=== PATIENT | female | born 1980 | race Caucasian/White ===

== ENCOUNTER 2021-01-01 13:20 | Emergency (ER) | payer MEDICARE, MEDICAID, SELFPAY ==
[2021-01-01 13:25] VITALS: BP 113/56; PULSE 63; RESP 14; TEMP 36.7; O2SAT 98
--- NOTE | 2021-01-01 13:32 | DI.RAD.S_ITS ---
PROCEDURE: XR ACUTE ABDOMEN SERIES INDICATIONS: constipation TECHNIQUE: One view chest and two views of the abdomen were acquired. COMPARISON: None. FINDINGS: Surgical changes and devices: None. Chest: Lung volumes are low bilaterally. Patchy bibasilar opacities are noted. No focal consolidations. Heart size is normal. No pleural effusions. No pneumoperitoneum. Abdomen: Surgical clips in the right upper abdomen likely from prior cholecystectomy. Bowel gas pattern is nonobstructive. Moderate amount of fecal material is seen in the transverse colon and proximal descending colon. Several air-filled loops of bowel are noted in the lateral aspect of the abdomen bilaterally. These are of normal caliber. No radiographic evidence of abnormal bowel wall thickening. No suspicious calcifications. Visualized solid organ contours appear normal. Bones: No suspicious bony lesions. IMPRESSION: 1. Low lung volumes bilaterally with patchy bibasilar opacities suspected to represent atelectasis. Concurrent airspace disease not excluded. Consider dedicated upright PA and lateral views of the chest when patient is able. 2. Nonobstructive bowel gas pattern with moderate amount of fecal material seen in the region of the transverse colon and proximal descending colon. Dictated by: Arcadio Gonzáles M.D. on 01/01/2021 at 13:07 Approved by: Arcadio Gonzáles M.D. on 01/01/2021 at 13:10
--- NOTE | 2021-01-01 14:14 | ED.ABDPAIN ---
HPI - Abdominal Pain General Chief Complaint: Abdominal Pain Stated Complaint: constipation Time Seen by Provider: 01/01/21 14:12 Source: patient and other Mode of arrival: Wheelchair Limitations: other History of Present Illness HPI narrative: 40F nonsmoker with history of developmental delay and chronic GI issues presents with her care provider and a chief complaint of constipation, decreased bowel movement for several days and the perception of discomfort. She has had no vomiting nor fever or chills. She has had no obvious change in appetite or diet. She has had no change in urine output. Patient was given a bottle of Mag citrate a few days ago and caregiver contacted the patient's GI doc and was told to come to the emergency department for evaluation. MD complaint: abdominal pain Onset (ago): day(s) Pain Consistency: intermittent Location: diffuse Related Data Allergies Allergy/AdvReac Type Severity Reaction Status Date / Time No Known Drug Allergies Allergy Verified 01/01/21 13:33 Review of Systems Review of Systems ROS Unobtainable: Unobtainable due to mental status/LOC Constitutional Constitutional: Denies chills, Denies fatigue, Denies fever(s), Denies frequent falls, Denies lethargy and Denies weakness Eyes Eyes: Denies change in vision, Denies eye discharge, Denies irritation and Denies loss of vision ENT Ears, Nose, Mouth, and Throat: Denies change in voice, Denies dizziness, Denies neck pain, Denies sore throat and Denies throat swelling Cardiovascular Cardiovascular: Denies chest pain, Denies irregular heart rhythm, Denies lightheadedness, Denies palpitations, Denies dyspnea, Denies dyspnea on exertion and Denies orthopnea Respiratory Respiratory: Denies cough, Denies dyspnea, Denies dyspnea on exertion and Denies wheezing Gastrointestinal Gastrointestinal: Denies abdominal pain, Denies change in bowel habits, Denies diarrhea, Denies nausea and Denies vomiting Musculoskeletal Musculoskeletal: Denies neck pain and Denies numbness Integumentary/Breasts Skin/Breast: Denies pruritus, Denies erythema, Denies rash and Denies wounds Neurologic Neurologic: Denies behavioral changes, Denies confusion, Denies dizziness, Denies frequent falls, Denies loss of vision, Denies numbness and Denies weakness Psychiatric Psychiatric: Denies anxiety, Denies behavioral changes, Denies confusion, Denies depression, Denies homicidal ideation and Denies suicidal ideation Endocrine Endocrine: Denies fatigue, Denies flushing and Denies palpitations Hematologic/Lymphatic Hematologic/Lymphatic: Denies easy bruising Allergic/Immunologic Allergic/Immunologic: Denies urticaria, Denies throat swelling and Denies wheezing Patient History Smoking Status: Never smoker Exam Narrative Exam Narrative: GENERAL: [40] year old patient appears stated age. Well-nourished, well-developed patient, no obvious distress HEAD: Atraumatic. Normocephalic. EYES: Pupils equal round and reactive. Extraocular motions intact. No scleral icterus. No injection or drainage. ENT: Moist mucous membranes Nose without bleeding,Airway patent. NECK: Trachea midline. Non tender CARDIOVASCULAR: Regular rate and rhythm without murmurs, gallops, or rubs. RESPIRATORY: Clear to auscultation. Breath sounds equal bilaterally. No wheezes, rales, or rhonchi. GASTROINTESTINAL: Abdomen soft, non-tender, nondistended. Bowel sounds present though decreased in all 4 quadrants EXTREMITIES: No edema or joint tenderness. BACK: Nontender without deformity or crepitance. No flank tenderness. SKIN: No rash or erythema of visible areas Initial Vital Signs Initial Vital Signs: Vital Signs Temperature 98.1 F 01/01/21 13:25 Pulse Rate 63 01/01/21 13:25 Respiratory Rate 14 01/01/21 13:25 Blood Pressure 113/56 L 01/01/21 13:25 Pulse Oximetry 98 01/01/21 13:25 Course Orders Ordered: ED Orders 01/01/21 13:32 XR acute abdomen series Stat Vital Signs Vital signs: Vital Signs - 8 hr 01/01/21 13:25 Temperature 98.1 F Pulse Rate 63 Respiratory Rate 14 Blood Pressure 113/56 L Pulse Oximetry 98 MDM - Abdominal Pain Lab Data Point of care testing: Jodi Penn 40 F [address] [id number] ReportSigned Patient: Jodi PennMR#: [id number]: 1980Acct:[id number]/Sex: 40 / FDate of Service: 01/01/21Loc: EDAccession Number: [id number] Procedure: XR acute abdomen series Ordering Provider: Anny Yoder D.O. PROCEDURE: XR ACUTE ABDOMEN SERIES INDICATIONS: constipation TECHNIQUE: One view chest and two views of the abdomen were acquired. COMPARISON: None. FINDINGS: Surgical changes and devices: None. Chest: Lung volumes are low bilaterally. Patchy bibasilar opacities are noted. No focal consolidations. Heart size is normal. No pleural effusions. No pneumoperitoneum. Abdomen: Surgical clips in the right upper abdomen likely from prior cholecystectomy. Bowel gas pattern is nonobstructive. Moderate amount of fecal material is seen in the transverse colon and proximal descending colon. Several air-filled loops of bowel are noted in the lateral aspect of the abdomen bilaterally. These are of normal caliber. No radiographic evidence of abnormal bowel wall thickening. No suspicious calcifications. Visualized solid organ contours appear normal. Bones: No suspicious bony lesions. IMPRESSION: 1. Low lung volumes bilaterally with patchy bibasilar opacities suspected to represent atelectasis. Concurrent airspace disease not excluded. Consider dedicated upright PA and lateral views of the chest when patient is able. 2. Nonobstructive bowel gas pattern with moderate amount of fecal material seen in the region of the transverse colon and proximal descending colon. Dictated by: Arcadio Gonzáles M.D. on 01/01/2021 at 13:07 Approved by: Arcadio Gonzáles M.D. on 01/01/2021 at 13:10 MDM Narrative Medical decision making narrative: Patient in no obvious distress, soft abdomen with decreased bowel sounds and decreased bowel movements. No vomiting or fever. Nonobstructive x-ray. Length ear discussion with caregiver about options for bowel motility. Return precautions given and questions answered to their apparent satisfaction Discharge Plan Departure Patient Disposition: Home Clinical Impression: Constipation Qualifiers: Constipation type: unspecified constipation type Qualified Code(s): K59.00 - Constipation, unspecified Instructions: DI for Constipation Activity Restrictions/Additional Instructions: *You have been diagnosed with [ abdominal pain due to constipation ] *What to do: *Take over the counter medications as directed: 1. Metamucil - bulk forming laxative adds fiber 2. Colace - softens your stool 3. Dulcolax Suppository - stimulates your bowels from the bottom *Please consume a clear liquid diet only for the next 48 hours, then advance slowly as tolerated paying close attention to avoiding dairy and glutein *Follow up with your primary care provider in 2-3 days, call for appointment *Return to ER if you should have any new, worsening or concerning symptoms
[2021-01-01 15:17] VITALS: BP 123/84; PULSE 66; RESP 16; O2SAT 97
== END 2021-01-01 15:18 | disposition home or self-care (01) ==
PROVIDERS: Emergency Provider Emergency Medicine
DX: K59.00 Constipation, unspecified (principal)
CPT/HCPCS: 74022; 99283